=== PATIENT | female | born 1995 | race Caucasian/White ===

== ENCOUNTER 2020-09-04 14:50 | Emergency (ER) | payer OTHER ==
[~2020-09-04] VITALS: Ht 162.6 cm; Wt 99.8 kg
== END 2020-09-04 19:43 | disposition home or self-care (01) ==
LOC: ED 14:50
DX: R10.2 Pelvic and perineal pain (principal); R10.32 Left lower quadrant pain; Z87.891 Personal history of nicotine dependence
CPT/HCPCS: 74177; 76830; 76856; 80053; 81001; 83690; 83735; 84703; 85025; 87491; 87591; 99284-25; Q9967

== ENCOUNTER 2020-12-25 09:15 | Emergency (ER) | payer OTHER ==
[~2020-12-25] VITALS: Ht 162.6 cm; Wt 99.9 kg
[2020-12-25] MEDS ORDERED: ATIVAN1 MG PO (09:42)
[2020-12-25] MEDS ORDERED: LIDODERM1 EACH TD (09:42)
[2020-12-25] MEDS ORDERED: ROBAXIN-750750 MG PO (09:42)
== END 2020-12-25 09:55 | disposition home or self-care (01) ==
LOC: ED 09:15
DX: M62.830 Muscle spasm of back (principal); Z87.891 Personal history of nicotine dependence
CPT/HCPCS: 99283